=== PATIENT | female | born 1925 | race Two or more races ===

== ENCOUNTER 2017-07-24 16:15 | Inpatient (IN) | payer MEDICARE ==
--- NOTE | 2017-07-24 17:26 | ED ---
General Adult HPI - General Chief complaint: Extremity Injury, Lower Stated complaint: Right hip pain Time Seen by Provider: 07/24/17 16:17 Source: patient, RN notes reviewed, old records reviewed Mode of arrival: EMS Limitations: no limitations - History of Present Illness Initial comments: This is a 89-year-old female to the ER was presenting status post fall. Patient fell all leaving the grocery store earlier this morning. Patient states she was evaluated at [facility] and was told she had no fracture and she could have broken her hip. Patient states she's had continued pain. She states she cannot walk with difficulty moving right leg. - Related Data Home Medications Medication Instructions Recorded Confirmed Allopurinol [Zyloprim] 100 mg PO QAM 07/24/17 07/24/17 Glimepiride [Amaryl] 1 mg PO QAM 07/24/17 07/24/17 Lisinopril [Zestril] 20 mg PO BID 07/24/17 07/24/17 Warfarin [Coumadin] 5 mg PO CUEVAS@1830 07/24/17 07/24/17 Warfarin [Coumadin] 6.25 mg PO MOTUWETHFRSA@1830 07/24/17 07/24/17 amLODIPine [Norvasc] 10 mg PO QAM 07/24/17 07/24/17 Allergies Allergy/AdvReac Type Severity Reaction Status Date / Time codeine AdvReac Nausea & Verified 07/24/17 17:10 Vomiting Review of Systems ROS Statement: Those systems with pertinent positive or pertinent negative responses have been documented in the HPI. ROS Other: All systems not noted in ROS Statement are negative. Past Medical History Past Medical History: Hypertension, Osteoarthritis (OA) History of Any Multi-Drug Resistant Organisms: None Reported Past Surgical History: Cholecystectomy Past Psychological History: No Psychological Hx Reported Smoking Status: Never smoker Past Alcohol Use History: None Reported Past Drug Use History: None Reported General Exam Limitations: no limitations General appearance: alert, in no apparent distress Head exam: Present: atraumatic, normocephalic, normal inspection Eye exam: Present: normal appearance, PERRL, EOMI. Absent: scleral icterus, conjunctival injection, periorbital swelling ENT exam: Present: normal exam, mucous membranes moist Neck exam: Present: normal inspection. Absent: tenderness, meningismus, lymphadenopathy Respiratory exam: Present: normal lung sounds bilaterally. Absent: respiratory distress, wheezes, rales, rhonchi, stridor Cardiovascular Exam: Present: regular rate, normal rhythm, normal heart sounds. Absent: systolic murmur, diastolic murmur, rubs, gallop, clicks GI/Abdominal exam: Present: soft, normal bowel sounds. Absent: distended, tenderness, guarding, rebound, rigid Extremities exam: Present: normal inspection, full ROM, normal capillary refill , other (Leg right hip pain). Absent: tenderness, pedal edema, joint swelling, calf tenderness Back exam: Present: normal inspection Neurological exam: Present: alert, oriented X3, CN II-XII intact Psychiatric exam: Present: normal affect, normal mood Skin exam: Present: warm, dry, intact, normal color. Absent: rash Course Vital Signs 07/24/17 16:26 Temperature 96.9 F L Pulse Rate 89 Respiratory 18 Rate Blood Pressure 127/59 O2 Sat by Pulse 97 Oximetry - Reevaluation(s) Reevaluation #1: 07/24/17 17:26 Patient has improved pain control Medical Decision Making - Medical Decision Making 89 female the ER positive fall, positive pelvic fracture, will admit for pain control and rehabilitation - Radiology Data Radiology results: report reviewed (CT pelvis hip shows positive pelvic fracture ), image reviewed Disposition Clinical Impression: Pelvic fracture, Fall Disposition: ADMITTED IP TO THIS [facility] Condition: Good Referrals: Patrick Elise MD [Primary Care Provider] - 1-2 days
--- NOTE | 2017-07-24 17:36 | CT ---
EXAMINATION TYPE: CT pelvis wo con DATE OF EXAM: 07/24/2017 COMPARISON: NONE HISTORY: Fall, right hip pain. CT DLP: 620 mGycm Automated exposure control for dose reduction was used. Axial images were obtained at 5 mm thick sections. Reconstructed images in the coronal plane are revi ewed on the computer. FINDINGS: Facet degenerative changes and hypertrophy are present L4-5. Mild grade 1 spondylolisthesis of L4 ant erior and L5 may be present. Mild facet hypertrophy is present L5-S1. Sacroiliac joints appear intact . Femoral heads articulate with the acetabulum. Fracture of the right hip is not evident. There is acute fracture of the ischio ramus medially and within its midportion best visualized in the coronal plane images. Fracture of the inferior pubic ramus midportion is also evident. Symphysis pubis appears intact. Sacroiliac joints appear intact. IMPRESSION: 1. FRACTURE OF THE RIGHT PUBIC RAMUS AND ISCHIO RAMUS. 2. RIGHT HIP APPEARS INTACT.
[2017-07-24] MEDS ORDERED: SODIUM CHLORIDE 0.9% 1,000 ML IV STA (17:45)
[2017-07-24] MEDS ORDERED: MORPHINE SULFATE 4 MG/ML SYRINGE IV STA (17:45)
[2017-07-24] MEDS ORDERED: SODIUM CHLORIDE 0.9% 1,000 ML IV ONE (17:45)
[2017-07-24 18:08] LABS: Basophils % (A) 0 %; Eosinophils % (A) 0 %; HCT 35.1 % (34.0-46.0); HGB 11.8 gm/dL (11.4-16.0); Lymphocytes # (A) 0.5 k/uL (1.0-4.8); Lymphocytes % (A) 4 %; MCHC 33.5 g/dL (31.0-37.0); MCV 92.5 fL (80.0-100.0); Mean Platelet Volume 7.6; Monocytes # (A) 0.7 k/uL (0-1.0); Monocytes % (A) 5 %; Neutrophils # (A) 12.7 k/uL (1.3-7.7); Neutrophils % (A) 91 %; Platelet Count 286 k/uL (150-450); RDW 14.1 % (11.5-15.5)
[2017-07-24 18:16] LABS: Appearance,Urine Clear (Clear); Bilirubin,Urine Negative (Negative); Blood,Urine Negative (Negative); Color,Urine Yellow; Glucose,Urine (UA) Negative (Negative); Ketones,Urine Negative (Negative); Leukocyte Esterase,Urine Negative (Negative); Protein,Urine Trace (Negative); Specific Gravity,Urine 1.018 (1.001-1.035); Urobilinogen,Urine <2.0 mg/dL (<2.0)
[2017-07-24 18:21] LABS: Albumin 4.1 g/dL (3.5-5.0); Calcium 9.7 mg/dL (8.4-10.2); Phosphorus 3.5 mg/dL (2.5-4.5); Potassium 5.1 mmol/L (3.5-5.1); Total Bilirubin 0.9 mg/dL (0.2-1.3); Total Protein 6.5 g/dL (6.3-8.2)
[2017-07-24 20:56] VITALS: BMI 28.4
--- NOTE | 2017-07-25 02:29 | HP ---
HISTORY AND PHYSICAL DATE OF SERVICE: 07/24/2017 CHIEF COMPLAINT: Fall and fracture. HISTORY OF PRESENT ILLNESS: This 89-year-old woman with past medical history of hypertension, history of DJD , history of cholecystectomy, being for Dr. in the outpatient setting apparently had accidental fall and the patient fell while leaving the grocery store early in the morning. The patient is complaining of pain in the right hip. The patient went to [facility] and subsequently came to [facility] admitted for further evaluation and treatment. Pelvis CAT scan was done which showed fracture of the right pubic ramus and right hip appears to be intact. Patient admitted to the hospital further recommendations to follow. There is no history of fever, rigors. No history of headache, loss of consciousness, seizures. PAST MEDICAL HISTORY: History of hypertension, history of DJD, history of cholecystectomy. MEDICATIONS: Prior to admission: 1. Amaryl 1 mg q.a.m. 2. Coumadin 6.25 mg Monday, Monday, Monday, , Monday and Monday and 5 mg on Monday. 3. Norvasc 10 mg q.a.m. 4. Zestril 20 mg b.i.d. 5. Zyloprim 100 mg q.a.m. ALLERGIES: CODEINE. FAMILY HISTORY: No history of heart disease or strokes in the family. SOCIAL HISTORY: No history of smoking, no history of alcohol intake. REVIEW OF SYSTEMS: ENT: No diminished hearing or diminished vision. CARDIOVASCULAR: No angina or palpitations. Respiratory: No cough or hemoptysis. GI no nausea or vomiting. as mentioned earlier. : No dysuria. NERVOUS SYSTEM: As mentioned earlier. Allergies: No asthma or hayfever. Musculoskeletal as mentioned earlier. Hematology/Oncology: No history of anemia. Endocrine: No history of diabetes, hypothyroidism. Constitutional: As mentioned earlier. Dermatology: Negative. Rheumatology: Negative. Psychiatric: As mentioned earlier. PHYSICAL EXAMINATION: Patient is alert, oriented x3. The pulse is 89, blood pressure 137/59, respiration 18, temperature 98.8, pulse ox 97% on room air. HEENT is conjunctivae normal. Oral mucosa moist. Neck is no jugular venous distention. No carotid bruit. No lymph node enlargement. Cardiovascular is S1-S2. No S3, no S4. Respiratory: Breath sound diminished in the bases. No rhonchi and no crackles. Abdomen is soft, nontender. No mass palpable. Legs no edema. No swelling. NERVOUS SYSTEM: Higher functions as mentioned earlier, moves all 4 limbs, no focal motor or sensory deficits. Lymphatics: No lymph nodes palpable in the neck, axillae or groin. SKIN: No ulcer, rash or bleeding. Joints: slightly painful in joints. Gait not tested. Skin no ulcer, rash, bleeding. LAB STUDIES: WBC 14. Sodium 134, creatinine is 1.1. UA noted. ASSESSMENT: 1. Fall and right pubic ramus and ischemic ramus fractures. 2. Right hip pain. 3. Gait dysfunction. 4. Increased WBC. 5. Hyponatremia. 6. Increased creatinine with possible chronic kidney disease stage 3. 7. Diabetes type 2. 8. Hypertension. 9. Degenerative joint disease. 10.History of cholecystectomy. 11.Anticoagulate with Coumadin. RECOMMENDATION AND DISCUSSION: This 89-year-old woman with a past medical history of multiple medical problems , we will monitor the patient closely. Consult pain management. Otherwise we will initiate the home medications and we will also check the PT/INR also. PT/OT evaluation, possible ECF rehab. Guarded prognosis because of multiple complex medical issues. Resume the home medications and monitor blood sugars closely. The case management director and social media manager also to evaluate the home situation as well. Symptomatic treatment of the pain also will be provided. MMODL / IJN: [id number] / MTDD
[2017-07-25 07:24] LABS: INR 2.2 (<1.2); Prothrombin Time 20.2 sec (9.0-12.0)
[2017-07-25 07:33] LABS: Glucose,Whole Blood 161 mg/dL (75-99)
[2017-07-25] MEDS: INSULIN ASPART 100 UNIT/ML 1 ML 10 ML VIAL SQ SCH ×4 (09:27→22:29)
[2017-07-25] MEDS: LISINOPRIL 20 MG TAB PO SCH ×2 (09:28→22:31)
[2017-07-25] MEDS: ENOXAPARIN 40 MG/0.4 ML SYRINGE SQ SCH (09:28)
[2017-07-25] MEDS: ALLOPURINOL 100 MG TAB PO SCH (09:28)
[2017-07-25] MEDS: GLIMEPIRIDE 1 MG TAB PO SCH (09:28)
[2017-07-25] MEDS: amLODIPine 10 MG TAB PO SCH (09:29)
[2017-07-25 11:12] LABS: Glucose,Whole Blood 143 mg/dL (75-99)
[2017-07-25] MEDS: traMADol 50 MG TAB PO PRN ×2 (12:00→22:11)
--- NOTE | 2017-07-25 12:20 | P.CNOR ---
History of Present Illness - [facility] Consult date: 07/25/17 Requesting physician: Adama Bullock Consult reason: fracture (Pubic rami fracture) History of present illness: Patient is a pleasant 89-year-old female seen at bedside this morning. Orthopedics was consulted for her right pelvis fracture. She was admitted through the emergency department yesterday 07/24/2017 after suffering a fall what a grocery store. She had pain in the right side and leg with inability to bear weight. Computed tomography scan showed minimally displaced superior and inferior pubic rami fractures. She continues to have right-sided pain today as expected. She is denying radicular symptoms that are new including numbness, tingling or weakness. She has no calf pain. Review of systems is negative for fever, chills, chest pain, shortness of breath, nausea, vomiting, dizziness, headaches, slurred speech or other. Review of Systems All systems: negative Constitutional: Denies chills, Denies fever Eyes: denies blurred vision, denies pain Ears, nose, mouth and throat: Denies headache, Denies sore throat Cardiovascular: Denies chest pain, Denies shortness of breath Respiratory: Denies cough Gastrointestinal: Denies abdominal pain, Denies diarrhea, Denies nausea, Denies vomiting Genitourinary: Denies dysuria, Denies hematuria Musculoskeletal: Denies myalgias Integumentary: Denies pruritus, Denies rash Neurological: Denies numbness, Denies weakness Psychiatric: Denies anxiety, Denies depression Endocrine: Denies fatigue, Denies weight change Past Medical History Past Medical History: Cancer, Hypertension, Osteoarthritis (OA) History of Any Multi-Drug Resistant Organisms: None Reported Past Surgical History: Cholecystectomy Past Anesthesia/Blood Transfusion Reactions: No Reported Reaction Past Psychological History: No Psychological Hx Reported Smoking Status: Never smoker Past Alcohol Use History: None Reported Past Drug Use History: None Reported Medications and Allergies Home Medications Medication Instructions Recorded Confirmed Type Allopurinol [Zyloprim] 100 mg PO QAM 07/24/17 07/24/17 History Glimepiride [Amaryl] 1 mg PO QAM 07/24/17 07/24/17 History Lisinopril [Zestril] 20 mg PO BID 07/24/17 07/24/17 History Warfarin [Coumadin] 5 mg PO CUEVAS@1830 07/24/17 07/24/17 History Warfarin [Coumadin] 6.25 mg PO EMMA@1830 07/24/17 07/24/17 History amLODIPine [Norvasc] 10 mg PO QAM 07/24/17 07/24/17 History Allergies Allergy/AdvReac Type Severity Reaction Status Date / Time codeine AdvReac Nausea & Verified 07/24/17 17:10 Vomiting Physical Examination Inspection of the pelvis and right lower extremity show no open wounds or lacerations. There is no bony deformity. She has pain with range of motion of the right hip as expected and is tested minimally. Neurovascular status is grossly intact with motor and sensation throughout the right lower extremity. Calf is soft and nontender. 2+ dorsalis pedis pulses less than 2 second capillary refill is present. Results Computed tomography scan of the pelvis shows minimally displaced inferior and superior pubic rami fractures on the right. No evidence of hip fracture. - Labs Labs: Abnormal Lab Results - Last 24 Hours (Table) 07/24/17 07/24/17 07/24/17 Range/Units 17:55 17:55 17:55 WBC 14.0 H (3.8-10.6) k/uL Neutrophils # 12.7 H (1.3-7.7) k/uL Lymphocytes # 0.5 L (1.0-4.8) k/uL PT (9.0-12.0) sec INR (<1.2) Sodium 134 L (137-145) mmol/L BUN 25 H (7-17) mg/dL Creatinine 1.15 H (0.52-1.04) mg/dL Glucose 213 H (74-99) mg/dL POC Glucose (mg/dL) (75-99) mg/dL Urine Protein Trace H (Negative) 07/25/17 07/25/17 07/25/17 Range/Units 06:32 07:28 11:07 WBC (3.8-10.6) k/uL Neutrophils # (1.3-7.7) k/uL Lymphocytes # (1.0-4.8) k/uL PT 20.2 H (9.0-12.0) sec INR 2.2 H (<1.2) Sodium (137-145) mmol/L BUN (7-17) mg/dL Creatinine (0.52-1.04) mg/dL Glucose (74-99) mg/dL POC Glucose (mg/dL) 161 H 143 H (75-99) mg/dL Urine Protein (Negative) Microbiology - Last 24 Hours (Table) 07/24/17 17:55 Urine Culture - Preliminary Urine,Clean Catch H & H 07/24/17 Range/Units 17:55 Hgb 11.8 (11.4-16.0) gm/dL Hct 35.1 (34.0-46.0) % Coagulation 07/25/17 Range/Units 06:32 INR 2.2 H (<1.2) Result Diagrams: 07/24/17 17:55 07/24/17 17:55 Assessment and Plan (1) Pelvic fracture Narrative/Plan: Her pubic rami fractures do not require immediate surgical intervention. This patient has been reviewed with Dr. Bullock. Our recommendations are for her to continue with protected weightbearing and utilize a walker at all times. Continue with pain management and DVT prophylaxis. She may follow up in office in 2 weeks. Current Visit: Yes Status: Acute Code(s): S32.9XXA - FRACTURE OF UNSP PARTS OF LUMBOSACRAL SPINE AND PELVIS, INIT SNOMED Code(s): 98892708 Time with Patient: Less than 30
[2017-07-25] MEDS: HYDROcodone/APAP 5-325MG 1 EACH TAB PO PRN (14:56)
[2017-07-25 16:14] LABS: Hemoglobin A1C 5.7 % (4.0-6.0)
--- NOTE | 2017-07-25 16:33 | PN ---
PROGRESS NOTE DATE OF SERVICE: 07/25/2017 This 89-year-old woman who was admitted with fall and right pubic ramus fracture and as well as right ischial ramus fracture is being closely monitored. Patient is complaining of severe pain. Orthopedics is following the patient. No chest pain. No palpitations. PHYSICAL EXAM: Alert and oriented. Pulse 99, blood pressure 108/60, respirations 16, temperature 98.7, pulse ox 92% on room air. HEENT: Conjunctivae normal. Neck: No jugular venous distention. Cardiovascular: S1, S2 muffled. Respiratory: Breath sounds diminished in the bases. No rhonchi. No crackles. ABDOMEN: Soft, nontender. Legs: Movement of the left leg is painful. Central nervous system: No focal deficits. LAB STUDIES: WBC 14, hemoglobin 11.8, INR is 2.2, sodium 134, creatinine is 1.15. ASSESSMENT: 1. Fall and right pubic ramus and ischial ramus fracture. 2. Right hip pain. 3. Gait dysfunction. 4. Increased WBC. 5. Hyponatremia. 6. Increased creatinine with possible chronic kidney disease stage 3. 7. Diabetes type 2. 8. Hypertension. 9. Degenerative joint disease. 10.History of cholecystectomy. 11.Anticoagulation with Coumadin. RECOMMENDATIONS AND DISCUSSION: Recommend to continue current medication, continue symptomatic treatment. Otherwise at this time I would recommend continue the pain medications. PT/OT evaluation. Orthopedic evaluation. Guarded prognosis because of multiple complex medical issues. Further recommendations to follow. Possible ECF rehab. MMJOHN / KHADIJAHN: [id number] /
[2017-07-25 17:22] LABS: Glucose,Whole Blood 166 mg/dL (75-99)
[2017-07-25] MEDS: WARFARIN 2.5 MG TAB PO SCH (18:14)
[2017-07-25 20:34] LABS: Glucose,Whole Blood 134 mg/dL (75-99)
[2017-07-26] MEDS: traMADol 50 MG TAB PO PRN (05:41)
[2017-07-26 07:11] LABS: Glucose,Whole Blood 159 mg/dL (75-99)
[2017-07-26 07:43] VITALS: RESP 16
[2017-07-26] MEDS: ENOXAPARIN 40 MG/0.4 ML SYRINGE SQ SCH (07:54)
[2017-07-26] MEDS: GLIMEPIRIDE 1 MG TAB PO SCH (07:54)
[2017-07-26] MEDS: INSULIN ASPART 100 UNIT/ML 1 ML 10 ML VIAL SQ SCH ×4 (07:54→21:07)
[2017-07-26] MEDS: ALLOPURINOL 100 MG TAB PO SCH (07:55)
[2017-07-26] MEDS: LISINOPRIL 20 MG TAB PO SCH ×2 (07:55→21:07)
[2017-07-26] MEDS: amLODIPine 10 MG TAB PO SCH (07:55)
[2017-07-26 08:15] LABS: Calcium 9.4 mg/dL (8.4-10.2); INR 1.8 (<1.2); Potassium 4.8 mmol/L (3.5-5.1); Prothrombin Time 16.2 sec (9.0-12.0)
[2017-07-26 08:16] LABS: Basophils % (A) 0 %; Eosinophils # (A) 0.1 k/uL (0-0.7); Eosinophils % (A) 1 %; HCT 27.5 % (34.0-46.0); Lymphocytes # (A) 0.6 k/uL (1.0-4.8); Lymphocytes % (A) 7 %; MCH 32.1 pg (25.0-35.0); MCHC 34.5 g/dL (31.0-37.0); MCV 93.1 fL (80.0-100.0); Mean Platelet Volume 7.3; Monocytes # (A) 0.5 k/uL (0-1.0); Monocytes % (A) 6 %; Neutrophils # (A) 6.9 k/uL (1.3-7.7); Neutrophils % (A) 84 %; Platelet Count 236 k/uL (150-450); RBC 2.95 m/uL (3.80-5.40); RDW 14.2 % (11.5-15.5); WBC 8.2 k/uL (3.8-10.6)
[2017-07-26 08:19] LABS: HGB 9.5 gm/dL (11.4-16.0)
[2017-07-26] MEDS: HYDROcodone/APAP 5-325MG 1 EACH TAB PO PRN ×2 (11:07→18:44)
[2017-07-26 11:50] LABS: Glucose,Whole Blood 167 mg/dL (75-99)
--- NOTE | 2017-07-26 16:25 | PN ---
PROGRESS NOTE DATE OF SERVICE: 07/26/2017. INTERVAL HISTORY: This 89-year-old woman who was admitted with fall and right pubic inferior rami fracture is being closely monitored. The patient being worked up for ECF rehab. Patient complains of significant pain and difficulty walking also. No chest pain. No palpitations. No fever. EXAM: Alert and oriented times three. Pulse 91, blood pressure 120/82, respirations 16, temperature 97.6, pulse ox 97% on room air. HEENT: Conjunctivae normal. Neck: No jugular venous distention. Cardiovascular: S1, S2 muffled. Respiratory: Breath sounds diminished in the bases. A few scattered rhonchi. No crackles. Abdomen is soft, nontender. Legs status post fracture. Nervous system: No focal deficits. LABS: Hemoglobin 9.5. INR 1.8 and glucose noted. ASSESSMENT: 1. Fall and acute right pubis ramus fracture and ischial ramus fracture and pelvis fracture with severe right hip pain. 2. Severe gait dysfunction. 3. Increased WBC. 4. Hyponatremia. 5. Increased creatinine with possible chronic kidney disease stage 3. 6. Diabetes type 2. 7. Hypertension. 8. Degenerative joint disease. 9. History of cholecystectomy. 10.Anticoagulation with Coumadin. RECOMMENDATIONS AND DISCUSSION: Recommend to continue current medications, continue with monitoring, symptomatic treatment. Otherwise, at this time, I recommend PT/OT evaluation. The patient will require inpatient ECF rehab in this elderly individual with multiple complex medical issues. Further recommendations to follow. See orders for further details. Continue the pain medications and closely follow with Orthopedic Surgery. Further recommendations to follow. MMODL / IJN: [id number] /
[2017-07-26 17:57] LABS: Glucose,Whole Blood 179 mg/dL (75-99)
[2017-07-26] MEDS: WARFARIN 2.5 MG TAB PO SCH (18:40)
[2017-07-26 20:45] LABS: Glucose,Whole Blood 135 mg/dL (75-99)
[2017-07-27] MEDS: HYDROcodone/APAP 5-325MG 1 EACH TAB PO PRN ×2 (05:54→12:57)
[2017-07-27 06:56] LABS: Glucose,Whole Blood 144 mg/dL (75-99)
[2017-07-27 07:11] VITALS: TEMP 98.7
[2017-07-27 07:19] LABS: Basophils % (A) 1 %; Eosinophils # (A) 0.2 k/uL (0-0.7); Eosinophils % (A) 3 %; HCT 26.4 % (34.0-46.0); HGB 8.5 gm/dL (11.4-16.0); Lymphocytes # (A) 0.6 k/uL (1.0-4.8); Lymphocytes % (A) 9 %; MCH 30.5 pg (25.0-35.0); MCHC 32.2 g/dL (31.0-37.0); MCV 94.7 fL (80.0-100.0); Mean Platelet Volume 7.9; Monocytes # (A) 0.5 k/uL (0-1.0); Monocytes % (A) 8 %; Neutrophils # (A) 5.3 k/uL (1.3-7.7); Neutrophils % (A) 78 %; Platelet Count 217 k/uL (150-450); RBC 2.79 m/uL (3.80-5.40); RDW 14.4 % (11.5-15.5); WBC 6.9 k/uL (3.8-10.6)
[2017-07-27 07:23] LABS: Prothrombin Time 18.1 sec (9.0-12.0)
[2017-07-27 07:33] LABS: Calcium 9.1 mg/dL (8.4-10.2); Potassium 4.6 mmol/L (3.5-5.1)
[2017-07-27] MEDS: INSULIN ASPART 100 UNIT/ML 1 ML 10 ML VIAL SQ SCH ×2 (07:55→12:57)
[2017-07-27] MEDS: ENOXAPARIN 40 MG/0.4 ML SYRINGE SQ SCH (07:55)
[2017-07-27] MEDS: LISINOPRIL 20 MG TAB PO SCH (07:56)
[2017-07-27] MEDS: ALLOPURINOL 100 MG TAB PO SCH (07:56)
[2017-07-27] MEDS: amLODIPine 10 MG TAB PO SCH (07:56)
[2017-07-27] MEDS: GLIMEPIRIDE 1 MG TAB PO SCH (07:57)
[2017-07-27] MEDS: traMADol 50 MG TAB PO PRN (09:30)
--- NOTE | 2017-07-27 11:16 | P.DS ---
Providers Date of admission: 07/24/17 17:45 Expected date of discharge: 07/27/17 Attending physician: Sadai Pablo Consults: 07/24/17 17:45 Consult Physician Routine Consulting Provider: Adama Bullock Consult Reason/Comments: pelvicFx Do you want consulting provider notified?: Yes Primary care physician: Patrick Elise Hospital Course: Final Diagnoses: 1. Status post Fall with acute right pubis ramus fracture, ischial ramus fracture,pelvis fracture with severe right hip pain 2. Severe gait dysfunction 3.Acute on chronic renal failure 4. Diabetes mellitus type 2 5. Hypertension 6. Anticoagulation with Coumadin Hospital course: This is an 89-year-old female admitted status post fall with right pubic inferior rami fracture. Right hip appears to be intact as reported per CT. Evaluated by orthopedic surgery, with no immediate surgical intervention recommended at this time; recommendations to continue with protected weightbearing, utilizing walker at all times. Supportive care with pain management and DVT prophylaxis. Patient has been cleared by orthopedics for discharge. Patient is being discharged to [facility] subacute rehab in a stable condition with guarded prognosis. Physical Exam:VSS, alert and oriented 3,CV: S1, S2, muffled. RESP: Bilateral bases diminished. ABD: Soft nontender, positive bowel sounds.LEGS: Status post fracture. No focal deficits The impression and plan of care has been dictated as directed. : I performed a history and examination of this patient, discussed the same with the dictator. I agree with the dictator's note ,documented as a scribe. Any additional findings or plans will be noted. Time taken: 35 minutes Patient Condition at Discharge: Stable Plan - Discharge Summary Discharge Rx Participant: Yes New Discharge Prescriptions: New INSULIN LISPRO (HumaLOG) [humaLOG] 0 unit SQ ACHS #1 vial traMADol HCl [Ultram] 50 mg PO Q6H PRN #20 tab PRN Reason: Pain Continue Warfarin [Coumadin] 5 mg PO CUEVAS@1830 Warfarin [Coumadin] 6.25 mg PO MOTUWETHFRSA@1830 amLODIPine [Norvasc] 10 mg PO QAM Lisinopril [Zestril] 20 mg PO BID Allopurinol [Zyloprim] 100 mg PO QAM Glimepiride [Amaryl] 1 mg PO QAM Discharge Medication List Allopurinol [Zyloprim] 100 mg PO QAM 07/24/17 [History] Glimepiride [Amaryl] 1 mg PO QAM 07/24/17 [History] Lisinopril [Zestril] 20 mg PO BID 07/24/17 [History] Warfarin [Coumadin] 5 mg PO CUEVAS@182907/24/17 [History] Warfarin [Coumadin] 6.25 mg PO MOTUWETHFRSA@182907/24/17 [History] amLODIPine [Norvasc] 10 mg PO QAM 07/24/17 [History] INSULIN LISPRO (HumaLOG) [humaLOG] 0 unit SQ ACHS #1 vial 07/27/17 [Rx] traMADol HCl [Ultram] 50 mg PO Q6H PRN #20 tab 07/27/17 [Rx] Follow up Appointment(s)/Referral(s): Adama Bullock MD [STAFF PHYSICIAN] - 2 Weeks Patrick Elise MD [Primary Care Provider] - 3 Days Activity/Diet/Wound Care/[facility] CBC,BMP [facility] 3 days
[2017-07-27 11:28] LABS: Glucose,Whole Blood 163 mg/dL (75-99)
[2017-07-27 14:06] VITALS: BP 106/56; PULSE 100
[2017-07-30] MEDS ORDERED: WARFARIN 5 MG TAB PO SCH (18:00)
== END 2017-07-27 15:10 | DRG 536 ==
LOC: EC 16:15 → 3SUR 17:45
PROVIDERS: ADMIT Hospitalist; ATTEND Hospitalist
DX: S32.591A Other specified fracture of right pubis, initial encounter for closed fracture (principal); E11.22 Type 2 diabetes mellitus with diabetic chronic kidney disease; N18.3 Chronic kidney disease, stage 3 (moderate); E87.1 Hypo-osmolality and hyponatremia; I12.9 Hypertensive chronic kidney disease with stage 1 through stage 4 chronic kidney disease, or unspecified chronic kidney disease; M19.91 Primary osteoarthritis, unspecified site; Z79.01 Long term (current) use of anticoagulants; Z79.84 Long term (current) use of oral hypoglycemic drugs; Z90.49 Acquired absence of other specified parts of digestive tract; Z79.899 Other long term (current) drug therapy; Z88.5 Allergy status to narcotic agent; W19.XXXA Unspecified fall, initial encounter; Y92.512 Supermarket, store or market as the place of occurrence of the external cause
CPT/HCPCS: 36415; 72192; 80048; 80053; 81003; 83036; 83735; 84100; 84550; 85025; 85610; 87086; 93005; 96361; 96374; 99285